=== PATIENT | male | born 1945 ===

== ENCOUNTER 2020-10-18 21:41 | Inpatient (IN) | payer SELFPAY ==
[~2020-10-18] VITALS: Ht 172.7 cm; Wt 74.0 kg
--- NOTE | 2020-10-18 21:58 | NUR ---
IFT ELIZABETH CHRISTIANSEN. 11 MM KIDNEY STONE L SIDE. SMALL GIB. 80 PROTONIX/2 GM ROCEPHIN/PEPCID IV BY ELIZABETH CHRISTIANSEN. PROTONIX GTT CLAMPED DURING EMS TRANSFER. attached to monitors, vss. nadn bed in low position, rails enagged, call light on lap. wctm a&ox4, breathing even and unlabored.
--- NOTE | 2020-10-18 22:05 | NUR ---
pt states he has had left flank pain for months but none currently.
[2020-10-18 22:20] LABS: BASOPHILS % (AUTO) 0 % (0-1); EOSINOPHILS % (AUTO) 0 % (1-7); LYMPHOCYTES % (AUTO) 5 % (22-44); MEAN CORPUSCULAR HEMOGLOBIN 30.4 pg (27.5-34.5); MEAN CORPUSCULAR HGB CONC 32.5 g/dL (33.2-36.2); MEAN PLATELET VOLUME 8.6 fL (7.4-10.4); MICROSCOPIC AUTO; MONOCYTES % (AUTO) 4 % (2-9); NEUTROPHILS % (AUTO) 91 % (42-75); PLATELET COUNT 235 x10^3/uL (130-400); RED BLOOD COUNT 4.47 x10^6/uL (4.38-5.82); RED CELL DISTRIBUTION WIDTH 15.4 % (9.4-14.8)
[2020-10-18 22:28] LABS: ANION GAP 5 mmol/L (5-15); CALCIUM 9.6 mg/dL (8.5-10.1); CHLORIDE 108 mmol/L (98-107); CREATININE 1.27 mg/dL (0.7-1.3)
--- NOTE | 2020-10-18 22:37 | NUR ---
Patient is resting comfortably in bed. Bed in lowest, rails engaged, call light on lap. Vital Signs within normal limits. WCTM. pt given water and blankets. nadn. irizarry at bedside.
--- NOTE | 2020-10-18 22:51 | NUR ---
PT GIVEN NON SLIP SOCKS AND BROUGHT TO PHONE TO CALL HIS FAMILY. AMBULATED WITH STEADY GAIT,
[2020-10-18] MEDS ORDERED: morphine SULFATE 10 MG/ML, 1ML IVPush PRN (23:30)
[2020-10-18] MEDS ORDERED: ONDANSETRON ODT 4 MG PO PRN (23:30)
[2020-10-18] MEDS ORDERED: ONDANSETRON 2MG/ML, 2ML IVPush PRN (23:30)
[2020-10-18] MEDS ORDERED: hydrALAzine 20 MG/ML, 1ML IVPush PRN (23:30)
[2020-10-18] MEDS ORDERED: PANTOPRAZOLE 80 MG in SODIUM CHLORIDE 0.9% 100 ML IV SCH (23:30)
[2020-10-18] MEDS ORDERED: POLYETHYLENE GLYCOL 17 GM PACKET PO PRN (23:30)
[2020-10-18] MEDS ORDERED: DOCUSATE 100 MG CAPSULE PO PRN (23:30)
[2020-10-18] MEDS ORDERED: BISACODYL 10 MG SUPP PR PRN (23:30)
[2020-10-18] MEDS ORDERED: HYDROcodone/APAP 5/325 TABLET PO PRN (23:30)
[2020-10-18] MEDS ORDERED: ACETAMINOPHEN 325 MG TABLET PO PRN (23:30)
[2020-10-18] MEDS ORDERED: PANTOPRAZOLE 80 MG in SODIUM CHLORIDE 0.9% 50 ML IV ONE (23:30)
--- NOTE | 2020-10-19 00:06 | NUR ---
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 starting pt on protonix drip.
[2020-10-19] MEDS: SODIUM CHLORIDE 0.9% 1,000 ML IV SCH ×3 (00:08→16:00)
--- NOTE | 2020-10-19 00:16 | NUR ---
GAVE REPORT TO MICHAEL SHELDON.
--- NOTE | 2020-10-19 00:21 | NUR ---
PT STATES HE DOES NOT TAKE ANY MEDICATIONS. NO MED REC REQUIRED.
[2020-10-19 02:34] VITALS: BP 114/68
[2020-10-19 05:36] LABS: BASOPHILS % (AUTO) 0 % (0-1); EOSINOPHILS % (AUTO) 1 % (1-7); LYMPHOCYTES % (AUTO) 12 % (22-44); MEAN CORPUSCULAR HEMOGLOBIN 30.4 pg (27.5-34.5); MEAN CORPUSCULAR HGB CONC 32.7 g/dL (33.2-36.2); MEAN PLATELET VOLUME 8.8 fL (7.4-10.4); MONOCYTES % (AUTO) 5 % (2-9); NEUTROPHILS % (AUTO) 82 % (42-75); PLATELET COUNT 218 x10^3/uL (130-400); RED BLOOD COUNT 4.21 x10^6/uL (4.38-5.82); RED CELL DISTRIBUTION WIDTH 15.3 % (9.4-14.8)
[2020-10-19 05:38] LABS: ANION GAP 5 mmol/L (5-15); CALCIUM 9.2 mg/dL (8.5-10.1); CHLORIDE 108 mmol/L (98-107)
[2020-10-19 05:39] LABS: CREATININE 1.17 mg/dL (0.7-1.3)
[2020-10-19 07:34] VITALS: BP 151/66
[2020-10-19] MEDS: CEFTRIAXONE 1,000 MG in DEXTROSE 5% 50 ML IVPB SCH (08:40)
[2020-10-19] MEDS ORDERED: HYDROmorphone 2 MG/ML, 1ML IVPush PRN (13:00)
[2020-10-19] MEDS ORDERED: ALBUTEROL SULFATE 2.5 MG/3 ML NPPB PRN (13:00)
[2020-10-19] MEDS ORDERED: FENTANYL PF 100 MCG/2ML IV PRN (13:00)
[2020-10-19] MEDS ORDERED: ACETAMINOPHEN 325 MG TABLET PO PRN (13:00)
[2020-10-19] MEDS ORDERED: MEPERIDINE/PF 25MG/0.5ML IVPush PRN (13:00)
[2020-10-19] MEDS ORDERED: DIAZEPAM 5 MG/ML, 2ML IVPush PRN (13:00)
[2020-10-19] MEDS ORDERED: LABETALOL 5MG/ML, 20ML IV PRN (13:00)
[2020-10-19] MEDS ORDERED: hydrALAzine 20 MG/ML, 1ML IV PRN (13:00)
[2020-10-19] MEDS ORDERED: OXYcodone 5 MG/5 ML ORAL.SOL UDC PO PRN (13:00)
[2020-10-19] MEDS ORDERED: PROMETHAZINE 25 MG/ML, 1ML IV PRN (13:00)
[2020-10-19] MEDS ORDERED: KETOROLAC 30 MG/1 ML IV PRN (13:00)
[2020-10-19] MEDS: PANTOPRAZOLE 40 MG IV IVPush SCH (14:05)
[2020-10-19 14:16] VITALS: BP 115/67
[2020-10-19 20:07] VITALS: BP 114/69
[2020-10-20] MEDS: PANTOPRAZOLE 40 MG IV IVPush SCH ×2 (01:16→13:27)
[2020-10-20] MEDS: SODIUM CHLORIDE 0.9% 1,000 ML IV SCH ×2 (01:17→07:38)
[2020-10-20 02:15] VITALS: BP 152/72
[2020-10-20 05:30] LABS: BASOPHILS % (AUTO) 1 % (0-1); EOSINOPHILS % (AUTO) 8 % (1-7); LYMPHOCYTES % (AUTO) 23 % (22-44); MEAN CORPUSCULAR HEMOGLOBIN 30.4 pg (27.5-34.5); MEAN CORPUSCULAR HGB CONC 32.9 g/dL (33.2-36.2); MEAN PLATELET VOLUME 8.9 fL (7.4-10.4); MONOCYTES % (AUTO) 7 % (2-9); NEUTROPHILS % (AUTO) 61 % (42-75); PLATELET COUNT 209 x10^3/uL (130-400); RED BLOOD COUNT 3.93 x10^6/uL (4.38-5.82); RED CELL DISTRIBUTION WIDTH 14.8 % (9.4-14.8)
[2020-10-20 05:36] LABS: INTERNATIONAL NORMALIZED RATIO 1.09 (0.93-1.1); PROTHROMBIN TIME 11.6 Seconds (9.6-11.5)
[2020-10-20 05:44] LABS: ALANINE AMINOTRANSFERASE 18 U/L (12-78); ALBUMIN 2.5 g/dL (3.4-5.0); ANION GAP 9 mmol/L (5-15); CALCIUM 9.7 mg/dL (8.5-10.1); CHLORIDE 110 mmol/L (98-107); CREATININE 1.18 mg/dL (0.7-1.3)
[2020-10-20 05:46] LABS: ALKALINE PHOSPHATASE 75 U/L (45-117); BILIRUBIN,TOTAL 0.7 mg/dL (0.2-1.0); TOTAL PROTEIN 6.1 g/dL (6.4-8.2)
[2020-10-20 07:24] VITALS: BP 166/76
[2020-10-20] MEDS: CEFTRIAXONE 1,000 MG in DEXTROSE 5% 50 ML IVPB SCH (08:39)
[2020-10-20 14:11] VITALS: BP 143/68
[2020-10-20] MEDS ORDERED: PANT40TA3 PO (15:25)
== END 2020-10-20 17:05 | disposition home or self-care (01) | DRG 381 ==
LOC: ED 10-19 01:28 → EDIP 10-19 01:41 → 3N 10-19 01:44
PROVIDERS: ADMIT Internal Medicine; ATTEND Internal Medicine
PROC: 0DJ08ZZ Inspection of Upper Intestinal Tract, Via Natural or Artificial Opening Endoscopic (ICD-10-PCS; principal; 2020-10-19 09:45)
DX: K22.11 Ulcer of esophagus with bleeding (principal); N13.2 Hydronephrosis with renal and ureteral calculous obstruction; Z20.822 Contact with and (suspected) exposure to COVID-19; D72.829 Elevated white blood cell count, unspecified; F10.10 Alcohol abuse, uncomplicated; M19.90 Unspecified osteoarthritis, unspecified site; N40.0 Benign prostatic hyperplasia without lower urinary tract symptoms; M54.9 Dorsalgia, unspecified; D64.9 Anemia, unspecified; E86.0 Dehydration; Z96.643 Presence of artificial hip joint, bilateral; I10 Essential (primary) hypertension; R13.14 Dysphagia, pharyngoesophageal phase; K29.80 Duodenitis without bleeding; Z82.3 Family history of stroke; Z82.49 Family history of ischemic heart disease and other diseases of the circulatory system; Z79.899 Other long term (current) drug therapy
CPT/HCPCS: 36415; 80048; 80053; 81001; 83735; 84100; 84145; 85025; 85610; 87086; 87635; 93005; 96374; 96375; 99285; G0378; J0696; C9113; J7030